=== PATIENT | male | born 1995 | race Caucasian/White ===

== ENCOUNTER 2024-10-22 17:02 | Emergency (ER) | payer SELFPAY ==
--- NOTE | 2024-10-22 17:33 | ER ---
Nurse's Notes [facility] Name: Vincenzo Anthony Age: 29 yrs Sex: Male : 1995 Arrival Date: 10/22/2024 Time: 17:02 Bed IW6 Private MD: Diagnosis: Gout, unspecified Presentation: 10/22 17:13 Chief complaint: Patient states: right great toe is red and swollen, painful x 3 days, ko1 no injury. Coronavirus screen: At this time, the client does not indicate any symptoms associated with coronavirus-19. Ebola Screen: No symptoms or risks identified at this time. Initial Sepsis Screen: Does the patient meet any 2 criteria? No. Patient's initial sepsis screen is negative. Does the patient have a suspected source of infection? No. Patient's initial sepsis screen is negative. Risk Assessment: Do you want to hurt yourself or someone else? Patient reports no desire to harm self or others. Onset of symptoms is unknown. 17:13 Method Of Arrival: Ambulatory ko1 17:13 Acuity: DORETHA 4 ko1 Triage Assessment: 17:18 General: Appears uncomfortable, Behavior is calm, cooperative, appropriate for age. ko1 Pain: Complains of pain in right first toe. Historical: - Allergies: 17:18 No Known Allergies; ko1 - Home Meds: 17:18 None [Active]; ko1 - PMHx: 17:18 None; ko1 - Immunization history:: Adult Immunizations up to date. - Infectious Disease History:: MRSA (w/in 1 year), . - Social history:: Smoking status: Patient denies any tobacco usage or history of. Screenin:46 [facility] ED Fall Risk Assessment (Adult) History of falling in the last 3 months, ko1 including since admission No falls in past 3 months (0 pts) Confusion or Disorientation No (0 pts) Intoxicated or Sedated No (0 pts) Impaired Gait No (0 pts) Mobility Assist Device Used No (0 pt) Altered Elimination No (0 pt) Score/Fall Risk Level 0 - 2 = Low Risk Oriented to surroundings, Maintained a safe environment, Educated pt \T\ family on fall prevention, incl call for assistance when getting out of bed. Abuse screen: Denies threats or abuse. Denies injuries from another. Nutritional screening: No deficits noted. Tuberculosis screening: No symptoms or risk factors identified. Assessment: 17:46 Pain: Complains of pain in right first toe. ko1 Vital Signs: 17:13 BP 138 / 98; Pulse 89; Resp 16; Temp 97.6; Pulse Ox 100% ; ko1 ED Course: 17:05 Patient arrived in ED. al6 17:07 Santi Theodore DO is Attending Physician. ms3 17:18 Triage completed. ko1 17:18 Arm band placed on right wrist. Patient placed in waiting room, Patient notified of ko1 wait time. 17:32 Andrew Zhang DO is Referral Physician. ms3 17:46 Patient has correct armband on for positive identification. Provided Education on: meds.ko1 17:46 No provider procedures requiring assistance completed. Patient did not have IV access ko1 during this emergency room visit. Administered Medications: 17:31 CANCELLED (Physician Discretion): colchicine-probenecid2 tabs PO once ms3 17:41 Drug: predniSONE PO 60 mg PO once Route: PO; ko1 17:47 Follow up: Response: No adverse reaction; Medication administered at discharge. ko1 17:41 Drug: colchicine 0.6 mg 1.2 mg PO once Route: PO; ko1 17:47 Follow up: Response: No adverse reaction; Medication administered at discharge. ko1 Medication: 17:46 VIS not applicable for this client. ko1 Outcome: 17:32 Discharge ordered by . ms3 17:46 Discharged to home ambulatory, with family, ko1 17:46 Condition: stable 17:46 Discharge instructions given to patient, family, Instructed on discharge instructions, follow up and referral plans. medication usage, Demonstrated understanding of instructions, follow-up care, medications, Prescriptions given X 3, 17:47 Patient left the ED. ko1 Signatures: Santi Theodore DO DO ms3 Kiki Gaming, RN RN ko1 Tamika Ruffin al6 Corrections: (The following items were deleted from the chart) 17:19 17:18 PSHx: None; ko1 ko1
--- NOTE | 2024-10-22 17:33 | EDPHYS ---
Physician Documentation [facility] Name: Vincenzo Anthony Age: 29 yrs Sex: Male : 1995 Arrival Date: 10/22/2024 Time: 17:02 Bed IW6 Private MD: ED Physician Santi Theodore HPI: 10/22 17:26 This 29 yrs old Male presents to ER via Ambulatory with complaints of foot swelling. ms3 17:26 29 year old male presents to the Emergency Department with a complaint of right great ms3 toe pain, redness, and swelling that began four days ago. The patient reports that the symptoms started suddenly, with no preceding injury. The patient denies having fevers, chills, nausea, or vomiting currently. The patient has experienced similar symptoms in the past, which were attributed to a bug bite. The patient has been taking 800 mg of ibuprofen without significant relief. . Historical: - Allergies: 17:18 No Known Allergies; ko1 - Home Meds: 17:18 None [Active]; ko1 - PMHx: 17:18 None; ko1 - Immunization history:: Adult Immunizations up to date. - Infectious Disease History:: MRSA (w/in 1 year), . - Social history:: Smoking status: Patient denies any tobacco usage or history of. ROS: 17:26 Constitutional: Negative for fever, and chills. Neck: Negative for injury, pain, and ms3 swelling, Cardiovascular: Negative for chest pain, and palpitations. Respiratory: Negative for shortness of breath, cough, wheezing, and pleuritic chest pain, Abdomen/GI: Negative for abdominal pain, nausea, vomiting, diarrhea, and constipation, 17:26 MS/extremity: Positive for Right foot pain, Exam: 17:26 Constitutional: This is a well developed, well nourished patient who is awake, alert, ms3 and in no acute distress. Cardiovascular: Regular rate and rhythm with a normal S1 and S2. No gallops, murmurs, or rubs. Normal PMI, no JVD. No pulse deficits. Respiratory: Lungs have equal breath sounds bilaterally, clear to auscultation and percussion. No rales, rhonchi or wheezes noted. No increased work of breathing, no retractions or nasal flaring. Abdomen/GI: Soft, non-tender, with normal bowel sounds. No distension or tympany. No guarding or rebound. No evidence of tenderness throughout. 17:26 Skin: Erythema of right 1st MTP, Pain with movement of right great toe. Vital Signs: 17:13 BP 138 / 98; Pulse 89; Resp 16; Temp 97.6; Pulse Ox 100% ; ko1 MDM: 17:25 Medical Screening Exam initiated ms3 17:26 Differential diagnosis: gout, cellulitis. Data reviewed: vital signs, nurses notes, and ms3 as a result, I will discharge patient. I considered the following discharge prescriptions or medication management in the emergency department Medications were administered in the Emergency Department. See MAR. Counseling: I had a detailed discussion with the patient and/or guardian regarding the historical points, exam findings, and any diagnostic results supporting the discharge/admit diagnosis, the need for outpatient follow up, to return to the emergency department if symptoms worsen or persist or if there are any questions or concerns that arise at home. Special discussion: I discussed with the patient/guardian in detail that at this point there is no indication for admission to the hospital. It is understood, however, that if the symptoms persist or worsen the patient needs to return immediately for re-evaluation. ED course: Discussed arthrocentesis of right great MTP joint. Patient declines and request treatment for gout at this time. Discussed plan for colchicine in the emergency department and colchicine to be taken 1 hour after discharge. Patient understands agrees with plan. All questions were answered. Return precautions discussed include fevers, worsening symptoms, or any other concerns.. Administered Medications: 17:31 CANCELLED (Physician Discretion): colchicine-probenecid2 tabs PO once ms3 17:41 Drug: predniSONE PO 60 mg PO once Route: PO; ko1 17:47 Follow up: Response: No adverse reaction; Medication administered at discharge. ko1 17:41 Drug: colchicine 0.6 mg 1.2 mg PO once Route: PO; ko1 17:47 Follow up: Response: No adverse reaction; Medication administered at discharge. ko1 Disposition Summary: 10/22/24 17:32 Discharge Ordered Notes: Location: Home ms3 Condition: Stable ms3 Diagnosis - Gout, unspecified ms3 Followup: ms3 - With: Andrew Zhang, DO - When: 2 - 3 days - Reason: Recheck today's complaints Discharge Instructions: - Discharge Summary Sheet ms3 - Gout ms3 - Low-Purine Eating Plan ms3 - Gout, [id number] ms3 Forms: - Medication Reconciliation Form ms3 - Antibiotic Education ms3 - Prescription Opioid Use ms3 - Patient Portal Instructions ms3 - Leadership Thank You Letter ms3 Prescriptions: - indomethacin 50 mg Oral capsule - take 1 capsule ORAL route 3 times per day administer with food or milk; 15 ms3 capsule; Refills: 0, Product Selection Permitted - colchicine 0.6 mg Oral capsule - take 1 capsule ORAL route daily; 14 capsule; Refills: 0, Product Selection ms3 Permitted - Prednisone 20 mg Oral Tablet - take 2 tablets ORAL route once daily for 5 days; 10 tablet; Refills: 0, Product ms3 Selection Permitted Signatures: Santi Theodore DO DO ms3 Kiki Gaming RN RN ko1 Corrections: (The following items were deleted from the chart) 17:19 17:18 PSHx: None; ko1 ko1 17:31 17:31 Colchicine-Probenecid PO 2 tabs PO once ordered. ms3 ms3
[2024-10-22] MEDS ORDERED: predniSONE 20 MG TAB ONE (17:40)
[2024-10-22] MEDS ORDERED: COLCHICINE 0.6 MG TAB ONE (17:41)
[2024-10-22 18:08] VITALS: BP 138/98; TEMP 97.6; O2SAT 100
== END 2024-10-22 17:47 | disposition home or self-care (01) ==
LOC: ER 17:02
DX: M10.9 Gout, unspecified (principal)
CPT/HCPCS: J7512